=== PATIENT | male | born 1945 | race Caucasian/White ===

== ENCOUNTER → 2019-02-12 | Outpatient (CLI) | payer OTHER ==
--- NOTE | 2019-02-12 12:11 | REP ---
Left knee six views: Mineralization is normal. There is faintly visible chondrocalcinosis, suggestive of CPPD. The joint spaces are otherwise unremarkable. There is no effusion. There is no fracture or dislocation. Impression: Faintly visible chondrocalcinosis suggestive of CPPD. No effusion. Otherwise, negative left knee. Electronically Signed by Ritchie Bailon MD 02/12/2019 10:23 A
--- NOTE | 2019-02-12 12:11 | REP ---
Left tibia-fibula four views : There is no fracture or dislocation. Mineralization and joint spaces are normal. There are no calcifications or foreign bodies. There is osteoarthritis at the ankle. Impression: Negative Left tibia-fibula . There is osteoarthritis at the ankle. Electronically Signed by Ritchie Bailon MD 02/12/2019 10:34 A
== END ==
LOC: M LRY 09:47
PROVIDERS: ATTEND Nurse Practitioner Family
DX: M19.072 Primary osteoarthritis, left ankle and foot (principal)